=== PATIENT | male | born 1975 | race Caucasian/White ===

== ENCOUNTER 2018-01-13 10:52 | Emergency (ER) | payer BC, OTHER ==
[~2018-01-13] VITALS: Ht 193 cm; Wt 102.1 kg
[2018-01-13] MEDS ORDERED: diphenhydrAMINE 50 MG/ML INJ (BENADRYL) IM ONE (11:30)
[2018-01-13] MEDS ORDERED: TRIAMCINOLONE ACET (KENALOG-40) 40 MG/ML 1 ML VIAL IM ONE (11:30)
--- NOTE | 2018-01-13 12:07 | ED Integumentary General ---
General Chief Complaint: Allergic Reaction Stated Complaint: RASH Nursing Triage Note: PT AMB TO ROOM #10 W/O DIFFICULTY. A&OX4. CO RASH/HIVES NOTED FROM MEDIAL ABD DOWN TO BILAT. ANKLES. PT REPORTS HIS HIVES STARTED TWO DAYS AGO, TOOK BENADRYL , AND HIVES WENT AWAY. PT REPORTS HIVES CAME BACK YESTERDAY AND ONCE AGAIN TOOK BENADRYL, WHICH CLEARED UP THE HIVES. PT REPORTS 10 MIN AFTER WAKING UP THIS MORNING THE HIVES CAME BACK AND HAVE PROGRESSIVELY GETTING WORSE EACH TIME THEY HAVE CAME BACK. PT REPORTS FAMILY HAS NOT BEEN EXPOSED TO ANYTHING NEW RECENTLY , INCLUDING HOUSE HOLD ITEMS, WORK EQUIPMENT, OR OUTSIDE ALLERGENS. PT DENIES SOA , THROAT SWELLING, OR TOUNGE SWELLING. PT CO OF HIVES ITCHING. Source: patient Exam Limitations: no limitations History of Present Illness Date Seen by Provider: Jan 13, 2018 Time Seen by Provider: 11:15 Initial Comments Patient is a 42-year-old male who presents to the emergency room POV with complaints of rash and hives to his inner thighs his flank area and his lower back past 3 days. He reports that the rash is most prominent at the end of the day after working out in the heat. He takes Benadryl before he goes to bed and the hives and rash go away by morning. The only concern is that they did not go away this morning and they keep getting worse. He reports that the rash does itch but improves with the use of Benadryl. He denies any change in laundry detergents, lotions, soaps or any thing that could be the cause of the rash. Denies any shortness of breath, throat swelling, facial swelling. Timing/Duration: getting worse, changing over time, intermittent, other (past 3 days) Possible Cause: no cause identified Associated Symptoms: petechiae, rash Allergies and Home Medications Allergies Coded Allergies: No Known Drug Allergies (Unverified , 01/13/18) Patient Home Medication List Home Medication List Reviewed: Yes Constitutional: see HPI; No chills, No fever Skin: see HPI, pruritus, rash All Other Systems Reviewed Negative Unless Noted: Yes Past [id number] Hx Past Med/Social Hx: Reviewed Nursing Past Med/Soc Hx Patient Social History Alcohol Use: Denies Use Recreational Drug Use: No Smoking Status: Never a Smoker 2nd Hand Smoke Exposure: No Recent Foreign Travel: No Contact w/Someone Who Travel: No Recent Infectious Disease Expo: No Recent Hopitalizations: No Physical Abuse: No Sexual Abuse: No Seasonal Allergies Seasonal Allergies: Yes Past Medical History Tonsillectomy Respiratory: No Cardiac: No Neurological: No Genitourinary: No Gastrointestinal: No Musculoskeletal: No Endocrine: No HEENT: No Cancer: No Psychosocial: No Nursing Suicide Risk Score: 0 Recent Skin Changes Blood Disorders: No Family Medical History Reviewed Nursing Family Hx Physical Exam Vital Signs Vital Signs - First Documented 01/13/18 11:06 Temp 96.9 Pulse 101 Resp 17 B/P (MAP) 133/101 (112) Pulse Ox 98 O2 Delivery Room Air Capillary Refill : Less Than 3 Seconds Progress/Results/Core Measures Results/Orders My Orders Orders - RICH JJ Triamcinolone Acetonide Im ([id number]) (01/13/18 11:30) Diphenhydramine Injection (Benadryl Inje (01/13/18 11:30) Vital Signs/I&O 01/13/18 11:06 Temp 96.9 Pulse 101 Resp 17 B/P (MAP) 133/101 (112) Pulse Ox 98 O2 Delivery Room Air Blood Pressure Mean: 112 Departure Impression Primary Impression: Allergic reaction Additional Impression: Heat rash Departure-Patient Inst. Decision time for Depature: 12:04 Referrals: OSWALDO RODRIGUEZ DO (PCP/Family) Primary Care Physician Patient Instructions: Heat Rash, Skin Rash (DC) Add. Discharge Instructions: Continue to use Benadryl 25 mg every 4 hours as needed for itching and hives. Try to wear non-constrictive clothing and if your clothing should become saturated with sweat try to change them as soon as possible. Follow-up with your doctor within 1 week for recheck. Return back to the emergency room for any worsening symptoms, especially if she should develop any shortness of breath , throat swelling, or any concerns as needed. All discharge instructions reviewed with patient and/or family. Voiced understanding. RICH JJ Jan 13, 2018 12:07
[2018-01-13 12:22] VITALS: BP 132/81
== END 2018-01-13 12:25 | disposition home or self-care (01) ==
LOC: EDUNIT# 10:52 → ER 10:53
DX: L74.0 Miliaria rubra (principal); T78.40XA Allergy, unspecified, initial encounter; Z90.89 Acquired absence of other organs
CPT/HCPCS: 99284

== ENCOUNTER → 2021-06-21 | Outpatient (CLI) | payer BC | LOC: CARD 10:00 | PROVIDERS: ATTEND Nurse Practitioner Family | DX: R07.89 Other chest pain (principal); U09.9 Post COVID-19 condition, unspecified | CPT/HCPCS: 93005 ==